=== PATIENT | male | born 1955 | race Asian ===

== ENCOUNTER 2017-11-01 18:40 | Emergency (ER) | payer BC ==
[~2017-11-01] VITALS: Ht 167.6 cm; Wt 68.0 kg
[2017-11-01 18:57] VITALS: Ht 167.6 cm; Wt 68.0 kg
[2017-11-01 19:49] LABS: BASOPHIL % 0.1 % (0-2); PLATELET COUNT 218 x10^3mcL (130-400); RED CELL DISTRIBUTION WIDTH 14.2 % (11.5-14.5)
[2017-11-01 20:20] LABS: CALCIUM 7.9 mg/dL (8.5-10.1); CARBON DIOXIDE 19.7 mmol/L (21-32); CHLORIDE SERUM 103 mmol/L (98-107); GFR1 > 60 mL/min; GLUCOSE SERUM 214 mg/dL (74-106); POTASSIUM SERUM 3.3 mmol/L (3.5-5.1); SODIUM SERUM 139 mmol/L (136-145)
[2017-11-01 20:22] LABS: T3 TOTAL 0.96 ng/mL
[2017-11-01 20:25] LABS: ALBUMIN 3.5 g/dL (3.4-5.0); ALKALINE PHOSPHATASE 62 U/L (46-116); MAGNESIUM 1.9 mg/dL (1.8-2.4); TOTAL PROTEIN, SERUM 7.2 g/dL (6.4-8.2)
[2017-11-01 20:38] LABS: FREE T4 0.97 ng/dL (0.76-1.46); FREE THYROXINE INDEX 2.3 ug/dL (1.4-4.5); T4(THYROXINE) 6.1 ug/dL (4.7-13.3)
[2017-11-01 20:39] LABS: AST/SGOT 112 U/L (15-37)
[2017-11-01 20:40] LABS: ALT/SGPT 33 U/L (16-63)
[2017-11-01 22:00] VITALS: BP 139/86
== END 2017-11-01 22:00 | disposition home or self-care (01) ==
LOC: ED 18:40
PROVIDERS: Emergency Medicine
DX: R42 Dizziness and giddiness (principal); R35.0 Frequency of micturition; R63.1 Polydipsia; E11.9 Type 2 diabetes mellitus without complications; E86.0 Dehydration; I10 Essential (primary) hypertension
CPT/HCPCS: 82962; 84439; J7030; J8597

== ENCOUNTER 2018-05-07 21:21 | Emergency (ER) | payer BC ==
[~2018-05-07] VITALS: Ht 162.6 cm; Wt 67.7 kg
[2018-05-07 22:32] VITALS: BP 130/85; Ht 162.6 cm; Wt 67.7 kg
== END 2018-05-07 23:18 | disposition home or self-care (01) ==
LOC: ED 21:21
DX: R07.0 Pain in throat (principal); I10 Essential (primary) hypertension; E11.9 Type 2 diabetes mellitus without complications; E78.00 Pure hypercholesterolemia, unspecified